=== PATIENT | female | born 1950 | race Caucasian/White ===

== ENCOUNTER 2017-07-08 13:20 | Day surgery (SDC) | payer OTHER ==
[~2017-07-08] VITALS: Ht 154.9 cm; Wt 54.1 kg
[~2017-07-08 13:20] MED LIST: ACYC400; ACYC400 PO; ACYCLOVIR; ALPR.25 PO; ASPI325 PO; CALCIUM 600 MG1 EACH; CLOP75 PO; Coq-1030 MG; Estriol0.1 GM; L-LYSINE1000 MG PO; LISI5; LOSA25 PO; Lysine1000 MG; METO25ER PO; PROBIOTIC1 EAC3; PROTECT PLUS N237 ML; PSEU120ER; Tambocor100 MG PO; VALS80; VALS80 PO; VALSARTAN-HCTZ1 EACH PO
[2017-07-08] MEDS ORDERED: ASPI81CH PO (13:30)
== END 2017-07-08 15:10 | disposition home or self-care (01) ==
LOC: ORSCSDS 13:20
PROVIDERS: Internal Medicine Gastroenterology
PROC: 0DBN8ZX Excision of Sigmoid Colon, Via Natural or Artificial Opening Endoscopic, Diagnostic (ICD-10-PCS; principal; 2017-07-08 14:30)
DX: R10.32 Left lower quadrant pain (principal); K59.00 Constipation, unspecified; Z86.010 Personal history of colon polyps; I10 Essential (primary) hypertension; I48.91 Unspecified atrial fibrillation; Z79.82 Long term (current) use of aspirin; Z79.899 Other long term (current) drug therapy; Z87.891 Personal history of nicotine dependence
CPT/HCPCS: 88305; J7120

== ENCOUNTER → 2017-09-22 | Outpatient (CLI) | payer OTHER ==
[~2017-09-22] MED LIST changes: +ASPI81CH PO
== END ==
LOC: PLD 11:30 → LAB SHORT 11:30
DX: D48.5 Neoplasm of uncertain behavior of skin (principal)
CPT/HCPCS: 88305

== ENCOUNTER → 2017-11-02 | Outpatient (CLI) | payer OTHER | END | disposition home or self-care (01) | LOC: LAB 10:09 → LAB SHORT 10:09 | PROVIDERS: Nurse Practitioner Obstetrics & Gynecology | DX: Z01.419 Encounter for gynecological examination (general) (routine) without abnormal findings (principal) | CPT/HCPCS: 87624; G0123 ==

== ENCOUNTER → 2018-07-19 | Outpatient (CLI) | payer OTHER | END | disposition home or self-care (01) | LOC: LAB SHORT 11:01 → PLD 11:01 | DX: C44.311 Basal cell carcinoma of skin of nose (principal) | CPT/HCPCS: 88305 ==

== ENCOUNTER → 2020-04-24 | Outpatient (CLI) | payer OTHER | END | disposition home or self-care (01) | LOC: LAB SHORT 11:42 → PLD 11:42 | DX: D23.9 Other benign neoplasm of skin, unspecified (principal) | CPT/HCPCS: 88305 ==

== ENCOUNTER → 2020-07-06 | Outpatient (CLI) | payer OTHER ==
[~2020-07-06] MED LIST changes: -ACYC400; +Aspir 8181 MG PO; +ELIQUIS5 MG PO; +FLUT.05NI; +LOSA50 PO; +LOSARTAN-HCTZ1 EAC6 PO; +METOPROLOL SUCC25 MG PO; +ROSUVASTATIN CAL5 MG PO
== END ==
LOC: LAB SHORT 15:04 → PLD 15:04
DX: D23.122 Other benign neoplasm of skin of left lower eyelid, including canthus (principal)
CPT/HCPCS: 88304

== ENCOUNTER 2020-07-08 16:12 | Emergency (ER) | payer OTHER ==
[~2020-07-08] VITALS: Ht 154.9 cm; Wt 54.4 kg
[~2020-07-08 16:12] MED LIST changes: -Aspir 8181 MG PO; -ELIQUIS5 MG PO; -FLUT.05NI; -LOSA50 PO; -LOSARTAN-HCTZ1 EAC6 PO; -METOPROLOL SUCC25 MG PO; -ROSUVASTATIN CAL5 MG PO
[2020-07-08] MEDS ORDERED: ROSUVASTATIN CAL5 MG PO (16:38)
[2020-07-08] MEDS ORDERED: FLUT.05NI (16:39)
[2020-07-08] MEDS ORDERED: LOSARTAN-HCTZ1 EAC6 PO (16:39)
[2020-07-08 17:14] LABS: BASOPHILS ABSOLUTE AUTO 0.03 K/mm3 (0.00-0.23); BASOPHILS PERCENT AUTO 0 % (0-2); EOSINOPHILS ABSOLUTE AUTO 0.16 K/mm3 (0.00-0.68); EOSINOPHILS PERCENT AUTO 2 % (0-6); Hematocrit 34.4 % (33.0-51.0); Hemoglobin 11.2 g/dL (11.5-16.0); IMMATURE GRAN ABSOLUTE AUTO 0.02 K/mm3 (0.00-0.10); IMMATURE GRAN PERCENT AUTO 0 % (0-1); LYMPHOCYTES ABSOLUTE AUTO 1.81 K/mm3 (0.84-5.20); LYMPHOCYTES PERCENT AUTO 21 % (21-46); MONOCYTES ABSOLUTE AUTO 0.61 K/mm3 (0.16-1.47); MONOCYTES PERCENT AUTO 7 % (4-13); Mean Corpuscular HGB 29.5 pg (26.0-34.0); Mean Corpuscular HGB Conc 32.6 g/dL (31.5-36.5); Mean Corpuscular Volume 91 fL (80-100); NEUTROPHILS ABSOLUTE AUTO 5.88 K/mm3 (1.96-9.15); NEUTROPHILS PERCENT AUTO 69 % (41-73); Platelet Count 290 K/mm3 (150-400); RDW Standard Deviation 39.9 fL (35.1-46.3); White Blood Cell Count 8.51 K/mm3 (4.00-11.30)
[2020-07-08 17:36] LABS: Alanine Aminotransfer (ALT/SGP 25 U/L (12-78); Albumin, Blood 3.4 g/dL (3.4-5.0); Albumin/Globulin Ratio 1.1 (0.8-1.8); Alk Phos 85 U/L (50-136); Anion Gap 4 mmol/L (6-16); Aspartate Aminotrans (AST/SGOT 25 U/L (12-37); Bilirubin, Total 0.2 mg/dL (0.1-1.0); Blood Urea Nitrogen 14 mg/dL (8-24); Bun/Creatinine Ratio 31.5 (12.0-20.0); CO2, Blood 25 mmol/L (21-32); Calcium, Blood 8.6 mg/dL (8.5-10.1); Chloride, Blood 112 mmol/L (98-108); Creatinine, Blood 0.44 mg/dL (0.40-1.00); Glomerular Filtration Rate >60 (60-); Glucose, Blood 90 mg/dL (70-99); Magnesium, Blood 2.2 mg/dL (1.6-2.4); Potassium, Blood 3.5 mmol/L (3.5-5.5); Sodium, Blood 141 mmol/L (136-145); Total Protein, Blood 6.4 g/dL (6.4-8.2); Troponin I 0.025 ng/mL (0.000-0.040)
[2020-10-01] MEDS ORDERED: Aspir 8181 MG PO (04:23)
[2020-10-01] MEDS ORDERED: METOPROLOL SUCC25 MG PO (04:23)
[2020-10-01] MEDS ORDERED: LOSA50 PO (17:41)
[2020-10-01] MEDS ORDERED: ELIQUIS5 MG PO (17:42)
== END 2020-07-08 17:50 | disposition home or self-care (01) ==
LOC: ER 16:12
PROVIDERS: Emergency Medicine
DX: I48.91 Unspecified atrial fibrillation (principal); I10 Essential (primary) hypertension; Z88.5 Allergy status to narcotic agent; Z88.1 Allergy status to other antibiotic agents; Z79.899 Other long term (current) drug therapy; Z79.82 Long term (current) use of aspirin; Z87.891 Personal history of nicotine dependence
CPT/HCPCS: 80053; 83735; 84484; 85025; 93005; 93010; 99284-25

== ENCOUNTER → 2020-07-08 | Outpatient (CLI) | payer OTHER ==
[2020-07-08 16:12] LABS: BASOPHILS ABSOLUTE AUTO 0.03 K/mm3 (0.00-0.23); BASOPHILS PERCENT AUTO 0 % (0-2); EOSINOPHILS ABSOLUTE AUTO 0.18 K/mm3 (0.00-0.68); EOSINOPHILS PERCENT AUTO 2 % (0-6); Hemoglobin 12.4 g/dL (11.5-16.0); IMMATURE GRAN ABSOLUTE AUTO 0.03 K/mm3 (0.00-0.10); IMMATURE GRAN PERCENT AUTO 0 % (0-1); LYMPHOCYTES ABSOLUTE AUTO 2.28 K/mm3 (0.84-5.20); LYMPHOCYTES PERCENT AUTO 27 % (21-46); MONOCYTES PERCENT AUTO 7 % (4-13); Mean Corpuscular HGB 30.1 pg (26.0-34.0); Mean Corpuscular HGB Conc 33.5 g/dL (31.5-36.5); Mean Corpuscular Volume 90 fL (80-100); Mean Platelet Volume 11.4 fL (9.1-12.4); NEUTROPHILS ABSOLUTE AUTO 5.26 K/mm3 (1.96-9.15); NEUTROPHILS PERCENT AUTO 63 % (41-73); Platelet Count 328 K/mm3 (150-400); RDW Coefficient Variation 12.2 % (11.7-14.2); RDW Standard Deviation 39.9 fL (35.1-46.3); Red Blood Cell Count 4.12 M/mm3 (3.80-5.20); White Blood Cell Count 8.38 K/mm3 (4.00-11.30)
[2020-07-08 16:26] LABS: Alanine Aminotransfer (ALT/SGP 28 U/L (12-78); Albumin, Blood 3.8 g/dL (3.4-5.0); Alk Phos 100 U/L (40-126); Anion Gap 8 mmol/L (6-16); Aspartate Aminotrans (AST/SGOT 30 U/L (12-37); Bilirubin, Total 0.3 mg/dL (0.1-1.0); Blood Urea Nitrogen 15 mg/dL (8-24); Bun/Creatinine Ratio 20.3 (12.0-20.0); CO2, Blood 27 mmol/L (21-32); Calcium, Blood 9.4 mg/dL (8.5-10.1); Chloride, Blood 104 mmol/L (98-108); Creatinine, Blood 0.74 mg/dL (0.40-1.00); Globulin, Blood 3.7 g/dL (2.2-4.0); Glomerular Filtration Rate >60 (60-); Glucose, Blood 109 mg/dL (70-99); Potassium, Blood 3.3 mmol/L (3.5-5.5); Sodium, Blood 139 mmol/L (136-145); Total Protein, Blood 7.5 g/dL (6.4-8.2); Troponin I <0.017 ng/mL (0.000-0.040)
== END | disposition home or self-care (01) ==
LOC: LAB 16:08 → LAB SHORT 16:08
PROVIDERS: Physician Assistant
DX: R07.9 Chest pain, unspecified (principal)
CPT/HCPCS: 80053; 84484; 85025

== ENCOUNTER 2020-10-01 04:05 | Observation (INO) | payer OTHER ==
[~2020-10-01] VITALS: Ht 154.9 cm; Wt 55.2 kg
== END 2020-10-01 18:22 | disposition home or self-care (01) ==
LOC: ER 04:05 → PCU 04:06
PROVIDERS: ADMIT Family Medicine
DX: I48.0 Paroxysmal atrial fibrillation (principal); I11.9 Hypertensive heart disease without heart failure; M54.89 Other dorsalgia; E78.5 Hyperlipidemia, unspecified; N60.19 Diffuse cystic mastopathy of unspecified breast; Z87.891 Personal history of nicotine dependence; Z79.82 Long term (current) use of aspirin; Z86.79 Personal history of other diseases of the circulatory system; Z95.5 Presence of coronary angioplasty implant and graft
CPT/HCPCS: 36415; 71045; 80048; 80053; 83735; 84439; 84443; 84484; 85025; 93005; 93010; 96365; 96366; 96376; 99285-25; A9270; G0378; J1650

== ENCOUNTER → 2021-07-10 | Outpatient (CLI) | payer OTHER ==
[~2021-07-10] MED LIST changes: +Aspir 8181 MG PO; +ELIQUIS5 MG PO; +FLUT.05NI; +LOSA50 PO; +LOSARTAN-HCTZ1 EAC6 PO; +METOPROLOL SUCC25 MG PO; +ROSUVASTATIN CAL5 MG PO
== END | disposition home or self-care (01) ==
LOC: LAB SHORT 11:11
DX: L73.8 Other specified follicular disorders (principal)
CPT/HCPCS: 88305

== ENCOUNTER → 2023-07-01 | Outpatient (CLI) | payer OTHER ==
[2023-07-07 15:28] LABS: OVA AND PARASITE,FECAL INTERP Negative (Negative)
== END ==
LOC: LAB 17:36 → LAB SHORT 17:36
PROVIDERS: Physician Assistant
DX: R19.5 Other fecal abnormalities (principal)
CPT/HCPCS: 87177; 87209

== ENCOUNTER → 2024-11-14 | Outpatient (CLI) | payer OTHER ==
[2024-11-22 14:36] LABS: HPV HIGH RISK BY TMA Not Detected; HPV SOURCE Cervical
== END ==
LOC: LAB 08:26 → LAB SHORT 08:26
PROVIDERS: Physician Assistant
DX: N95.0 Postmenopausal bleeding (principal); Z12.4 Encounter for screening for malignant neoplasm of cervix
CPT/HCPCS: 87624; 88142

== ENCOUNTER → 2025-05-17 | Outpatient (CLI) | payer OTHER ==
[2025-05-19 12:55] LABS: CALPROTECTIN,FECAL <5 ug/g (<=49)
== END ==
LOC: LAB SHORT 12:12 → LAB 12:12
PROVIDERS: Physician Assistant Medical
DX: R10.32 Left lower quadrant pain (principal)
CPT/HCPCS: 83993